=== PATIENT | female | born 1960 | race Caucasian/White ===

== ENCOUNTER 2017-05-13 08:54 | Outpatient (CLI) | payer BC ==
--- NOTE | 2017-05-13 10:07 | MMO ---
BILATERAL MAMMOGRAMS: HISTORY: Screening mammography. COMPARISON: 05/09/2014, 05/09/2015, and 05/12/2016. FINDINGS: Heterogeneously dense fibroglandular tissue and benign-appearing calcifications are again demonstrat ed. There is no dominant mass or suspicious calcifications. The study was evaluated with the assistance of computer-aided detection. IMPRESSION: BI-RADS category 1. Negative. Suggest routine followup. POS: [facility]
== END 2017-05-13 08:55 | disposition home or self-care (01) ==
LOC: SCSMAMMO 08:54
PROVIDERS: ATTEND Family Medicine
DX: Z12.31 Encounter for screening mammogram for malignant neoplasm of breast (principal)
CPT/HCPCS: 77067; G0202

== ENCOUNTER 2018-05-19 08:19 | Outpatient (CLI) | payer BC ==
--- NOTE | 2018-05-19 08:58 | MMO ---
BILATERAL DIGITAL SCREENING MAMMOGRAMS: Date: 05/19/18 HISTORY: 57-year-old female presents for digital screening mammogram. COMPARISON: 05/13/17, , 05/09/15, 05/09/14, 05/25/13. FINDINGS: This patient's mammogram was interpreted with the assistance of computer-aided detection. The breasts are heterogeneously dense, which can obscure small masses. Stable typically benign calcif ications are noted. No direct or indirect evidence of malignancy. IMPRESSION: BIRADS 2: Benign Finding(s) Continue routine screening. POS: [facility]
== END 2018-05-19 08:20 | disposition home or self-care (01) ==
LOC: SCSMAMMO 08:19
PROVIDERS: ATTEND Family Medicine
DX: Z12.31 Encounter for screening mammogram for malignant neoplasm of breast (principal)
CPT/HCPCS: 77067